=== PATIENT | female | born 2000 | race Caucasian/White ===

== ENCOUNTER 2023-05-07 16:25 | Inpatient (IN) | payer OTHER ==
[2023-05-07] MEDS ORDERED: CARBOPROST TROMETHAMINE 250 MCG/ML 1 ML AMP IM PRN (16:53)
[2023-05-07] MEDS ORDERED: TRANEXAMIC 1,000 MG/100ML-NACL 1,000 MG in EMPTY BAG 1 BAG IV PRN (16:53)
[2023-05-07] MEDS ORDERED: METHYLERGONOVINE 0.2 MG/ML 1 ML AMP IM PRN (16:53)
[2023-05-07] MEDS ORDERED: TERBUTALINE 1 MG/ML VIAL SQ PRN (16:53)
[2023-05-07] MEDS ORDERED: OXYTOCIN 10 UNIT/ML 1 ML VIAL IM PRN (16:53)
[2023-05-07] MEDS ORDERED: LIDOCAINE 0.5% (PF) 5 MG/ML (50 ML SDV) SQ PRN (16:53)
[2023-05-07] MEDS ORDERED: miSOPROStoL 200 MCG TAB PO PRN (16:53)
[2023-05-07] MEDS ORDERED: DINOPROSTONE 10 MG INSERT.ER VAGINAL ONE (16:55)
[2023-05-07] MEDS ORDERED: OXYTOCIN 30 UNITS/500 ML NS 30 UNIT in SALINE 1 500ML.BAG IV SCH (17:00)
[2023-05-07 17:50] LABS: Basophils % (A) 0 %; Eosinophils # (A) 0.1 k/uL (0-0.7); Eosinophils % (A) 1 %; HGB 10.2 gm/dL (11.4-16.0); Hypochromasia Slight; Lymphocytes # (A) 1.8 k/uL (1.0-4.8); Lymphocytes % (A) 15 %; MCH 28.4 pg (25.0-35.0); MCHC 32.8 g/dL (31.0-37.0); MCV 86.6 fL (80.0-100.0); Mean Platelet Volume 9.7; Monocytes # (A) 0.4 k/uL (0-1.0); Monocytes % (A) 4 %; Neutrophils # (A) 9.2 k/uL (1.3-7.7); Neutrophils % (A) 79 %; Platelet Count 229 k/uL (150-450); RBC 3.58 m/uL (3.80-5.40); RDW 14.2 % (11.5-15.5); WBC 11.7 k/uL (3.8-10.6)
[2023-05-07 18:08] VITALS: RESP 16
[2023-05-08] MEDS: LACTATED RINGERS 1,000 ML IV SCH ×3 (02:32→09:15)
[2023-05-08] MEDS ORDERED: SODIUM CHLORIDE 0.9% 100 ML BAG ONE (05:26)
[2023-05-08] MEDS ORDERED: fentaNYL (PF) 50 MCG/ML 5 ML AMP ONE (05:26)
[2023-05-08] MEDS ORDERED: ROPIVACAINE 5 MG/ML 20 ML AMPULE ONE (05:26)
--- NOTE | 2023-05-08 11:41 | P.PROBDLV ---
Vaginal Delivery Note - . Vaginal Delivery Note: 23yo at 39 6/7 weeks that presented to labor and delivery for scheduled Cervidil induction of labor last evening. Patient was admitted and Cervidil was placed without difficulty. Patient was noted to be 1 cm dilated. Patient progressed through the night eventually noting spontaneous rupture of membranes, contractions began to become uncomfortable and she did request epidural placement. Patient was noted to be 3-4 cm at the time of epidural placement. Patient made good progress toward complete. Patient once noted to be completely dilated was placed in a modified lithotomy position and with excellent maternal effort had delivery of the head followed by the anterior/posterior shoulder and body. Spontaneous cry was noted at . After two-minute delayed the umbilical cord was doubly clamped and cut. Cord blood was then taken. The placenta was delivered spontaneously intact with three-vessel cord being noted. Uterus noted to be firm and below the umbilicus. On inspection the patient's vaginal vault 2 vaginal lacerations were appreciated 1 hymenal and 1 vaginal. These were repaired with [id number] sutures of 3-0 Rapide. Hemostasis was noted after repair. Bladder was drained for approximately 200 mL of clear yellow urine. Patient and infant tolerated delivery well and are resting comfortably All counts were correct 2 at the delivery.
--- NOTE | 2023-05-08 11:41 | P.HPOB ---
History of Present Illness H&P Date: 05/07/23 Chief Complaint: IUP @ 40 weeks This is a 23 yo at 40 weeks of gestation that presents for induction of labor. She has been receiving routine care which has been essentially uncomplicated. Patient did have a marginal cord insertion noted on 20 week ultrasound. Patient has underwent growth ultrasounds along with testing that have been normal in nature. Patient notes good movement denies contractions vaginal bleeding or loss of fluid. On blood work shows a blood type of O+, rubella status immune, hepatitis B surface antigen negative, HIV negative, RPR is nonreactive, group beta strep culture negative. Review of Systems Constitutional: Denies chills, Denies fatigue, Denies fever Ears, nose, mouth and throat: Denies headache Cardiovascular: Reports leg edema Respiratory: Denies dyspnea Gastrointestinal: Denies constipation, Denies diarrhea, Denies nausea, Denies vomiting Genitourinary: Reports Past Medical History - Past Family History Father Family Medical History: No Reported History Medications and Allergies Home Medications Medication Instructions Recorded Confirmed Type Vit No.179/Iron/Folic 1 tab PO DAILY 05/07/23 05/07/23 History [ Tablet] Allergies Allergy/AdvReac Type Severity Reaction Status Date / Time No Known Allergies Allergy Verified 05/07/23 16:59 Exam Osteopathic Statement: *. No significant issues noted on an osteopathic structural exam other than those noted in the History and Physical/Consult. 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 Results Result Diagrams: 05/07/23 17:15 Assessment and Plan (1) Term Current Visit: Yes Status: Acute Code(s): Z34.90 - ENCNTR FOR SUPRVSN OF NORMAL , UNSP, UNSP TRIMESTER SNOMED Code(s): 83118983 (2) Marginal insertion of umbilical cord Current Visit: Yes Status: Acute Code(s): INH7055 - SNOMED Code(s): 59411511 Plan: 23-year-old at 39 5/7 weeks that presents to labor and delivery for induction of labor. Patient is admitted and Cervidil is placed for cervical ripening overnight. Options for analgesia are discussed including nitrous, Nubain an epidural. She will consider.
[2023-05-08] MEDS ORDERED: diphenhydrAMINE 25 MG CAP PO PRN (14:52)
[2023-05-08] MEDS ORDERED: BENZOCAINE/MENTHOL SPRAY 1 GM/SPRAY AEROSOL TOPICAL PRN (14:52)
[2023-05-08] MEDS ORDERED: SIMETHICONE 80 MG CHEWABLE PO PRN (14:52)
[2023-05-08] MEDS ORDERED: diphenhydrAMINE 50 MG CAP PO PRN (14:52)
[2023-05-08] MEDS ORDERED: ZOLPIDEM 5 MG TAB PO PRN (14:52)
[2023-05-08] MEDS ORDERED: ACETAMINOPHEN TAB 325 MG TAB PO PRN (14:52)
[2023-05-08] MEDS ORDERED: HYDROCORTISONE 2.5% RECTAL CREAM 30 GM TUBE RECTAL PRN (14:52)
[2023-05-08] MEDS ORDERED: LANOLIN CREAM 5 GM TUBE TOPICAL PRN (14:52)
[2023-05-08] MEDS: IBUPROFEN 600 MG TAB PO PRN ×2 (17:29→23:03)
[2023-05-08] MEDS: SENNOSIDES-DOCUSATE SODIUM 1 EACH TAB PO SCH (19:59)
[2023-05-09] MEDS: IBUPROFEN 600 MG TAB PO PRN (04:39)
[2023-05-09 07:28] LABS: Basophils % (A) 0 %; Eosinophils # (A) 0.2 k/uL (0-0.7); Eosinophils % (A) 1 %; HCT 30.7 % (34.0-46.0); HGB 10.1 gm/dL (11.4-16.0); Hypochromasia Slight; Lymphocytes % (A) 14 %; MCH 28.9 pg (25.0-35.0); MCV 87.6 fL (80.0-100.0); Mean Platelet Volume 9.7; Monocytes # (A) 0.7 k/uL (0-1.0); Monocytes % (A) 5 %; Neutrophils # (A) 11.8 k/uL (1.3-7.7); Neutrophils % (A) 79 %; Platelet Count 195 k/uL (150-450); RBC 3.51 m/uL (3.80-5.40); RDW 14.6 % (11.5-15.5); WBC 14.9 k/uL (3.8-10.6)
[2023-05-09] MEDS: SENNOSIDES-DOCUSATE SODIUM 1 EACH TAB PO SCH (08:36)
[2023-05-09 09:47] VITALS: BP 118/70; PULSE 90; TEMP 98.6
--- NOTE | 2023-05-09 09:48 | P.DS ---
Providers Date of admission: 05/07/23 16:25 Expected date of discharge: 05/09/23 Attending physician: Amy Shaw Primary care physician: Stated None - Discharge Diagnosis(es) (1) Term Current Visit: Yes Status: Acute (2) Marginal insertion of umbilical cord Current Visit: Yes Status: Acute (3) Status post vaginal delivery Current Visit: Yes Status: Acute Hospital Course: This is a 23-year-old G1 now P1 presented to labor and delivery at 40 weeks of gestation for induction of labor. Patient had a marginal cord insertion that was diagnosed in her 20 week anatomy ultrasound. Otherwise patient has had routine care. Patient was admitted and Cervidil was placed for induction of labor. Patient did well through the night becoming uncomfortable. Patient had spontaneous rupture of membranes clear fluid was appreciated. Patient was noted to be making cervical change therefore epidural was placed by the anesthesia department per patient's request. Patient did well through labor quickly progressing to complete. Patient began pushing and had a normal spontaneous vaginal delivery of a viable female infant at 1122, weight of 6 lbs. 13 oz. Patient did sustain 2 first 3 vaginal lacerations one on the hymen one vaginal the repaired with a [id number] suture of 3-0 Rapide. Patient's course has been uneventful. On this day #1 she is ambulating and voiding without difficulty. Her pain is well-controlled. She is breast-feeding without difficulty. She states she would like discharge home today if possible. Patient Condition at Discharge: Good Plan - Discharge Summary New Discharge Prescriptions: No Action Vit No.179/Iron/Folic [ Tablet] 1 tab PO DAILY Discharge Medication List Vit No.179/Iron/Folic [ Tablet] 1 tab PO DAILY 05/07/23 [History] Follow up Appointment(s)/Referral(s): Amy Shaw DO [Doctor of Osteopathic Medicine] - 2 Weeks Patient Instructions/Handouts: Vaginal Delivery (DC), Vaginal Delivery (GEN) Activity/Diet/Wound Care/Special Instructions: No tub baths or intercourse until 6 weeks . [id number] ibuprofen as needed for pain. Patient is to call the office to make a routine visit for 4 weeks . Should the patient have any concerns prior to this appointment she is urged to call the office. Discharge Disposition: HOME SELF-CARE
== END 2023-05-09 14:15 | disposition home or self-care (01) | DRG 807 ==
LOC: 4FBP 16:25
PROVIDERS: ADMIT Obstetrics & Gynecology Obstetrics; ATTEND Obstetrics & Gynecology Obstetrics
DX: O43.193 Other malformation of placenta, third trimester (principal); O70.1 Second degree perineal laceration during delivery; Z3A.40 40 weeks gestation of pregnancy; Z37.0 Single live birth
CPT/HCPCS: 85025; 86850; 86900; 86901